=== PATIENT | female | born 1965 | race African-American/Black ===

== ENCOUNTER 2016-10-20 16:29 | Emergency (ER) | payer OTHER ==
[~2016-10-20] VITALS: Ht 157.5 cm; Wt 106.8 kg
[~2016-10-20 16:29] MED LIST: FLOMAX0.4 MG PO; PERCOCET 5/31 TABLET PO; ZOFRAN4 MG PO
[2016-10-20 17:08] LABS: HEMATOCRIT 39.9 % (36.0-46.0); MCH 28.4 PG (29.0-34.0); MCHC 32.8 G/DL (30.0-36.0); MCV 86.4 FL (83-99); MEAN PLAT.VOLUME 10.3 uM^3 (9.5-12.4); PLATELET COUNT 325 K/uL (156-360); RBC DIS.WIDTH-CV 15.1 % (11.8-14.6); RBC DIS.WIDTH-SD 47.2 % (39-53); RED BLOOD COUNT 4.62 M/uL (3.80-5.20); WHITE BLOOD COUNT 10.9 K/uL (4.1-10.2)
[2016-10-20 17:17] LABS: CHLORIDE 109 mEq/L (99-109); POTASSIUM 4.2 mEq/L (3.7-5.4); SODIUM 144 mEq/L (136-147)
[2016-10-20 17:18] LABS: GLUCOSE 88 mg/dL (70-99)
[2016-10-20 17:20] LABS: ANION GAP 11 MEQ/L (2-14)
[2016-10-20 17:22] LABS: GFR ESTIMATE (CALCULATED) > 59 mL/min/
[2016-10-20 17:23] LABS: UREA NITROGEN (BUN) 18 mg/dL (9-23)
[2016-10-20 18:31] LABS: ADD MIUA? YES; BILIRUBIN NEGATIVE; BLOOD SMALL; COLOR YELLOW ((YELLOW)); GLUCOSE (STRIP) NEGATIVE; KETONES NEGATIVE; LEUKOCYTES NEGATIVE; NITRITE NEGATIVE; PROTEIN (STRIP) 30; SPECIFIC GRAVITY 1.017 (1.000-1.030); UROBILINOGEN 0.2 MG/DL (0.2-1.0)
[2016-10-20 18:49] LABS: BACTERIA NONE SEEN /HPF; EPITHELIAL CELLS RARE /HPF; MUCUS TRACE /LPF; UCUL ADDED? NO; WHITE BLOOD CELLS 0-5 /HPF (0-5)
[2016-10-20] MEDS ORDERED: ZOFRAN ODT4 MG PO (20:37)
[2016-10-20] MEDS ORDERED: PERCOCET 5/31 TABLET PO (20:37)
[2016-10-20 20:59] VITALS: BP 182/82
== END 2016-10-20 21:01 | disposition home or self-care (01) ==
LOC: EME 16:29
DX: M54.5 Low back pain (principal); R31.9 Hematuria, unspecified; Z87.442 Personal history of urinary calculi; F17.200 Nicotine dependence, unspecified, uncomplicated
CPT/HCPCS: 74176; 80048; 81003; 85027; 99281; 99284; J1885; J3010

== ENCOUNTER 2016-10-27 02:55 | Emergency (ER) | payer OTHER ==
[~2016-10-27] VITALS: Ht 162.6 cm; Wt 108.0 kg
[~2016-10-27 02:55] MED LIST changes: +ZOFRAN ODT4 MG PO
[2016-10-27 04:22] LABS: ADD MIUA? YES; BILIRUBIN NEGATIVE; BLOOD SMALL; COLOR YELLOW ((YELLOW)); GLUCOSE (STRIP) NEGATIVE; KETONES NEGATIVE; LEUKOCYTES NEGATIVE; NITRITE NEGATIVE; PROTEIN (STRIP) 100; SPECIFIC GRAVITY 1.026 (1.000-1.030); UROBILINOGEN 0.2 MG/DL (0.2-1.0)
[2016-10-27 04:24] LABS: BACTERIA NONE SEEN /HPF; EPITHELIAL CELLS RARE /HPF; HYALINE CASTS 0-5 /LPF; MUCUS TRACE /LPF; UCUL ADDED? NO; WHITE BLOOD CELLS 0-5 /HPF (0-5)
[2016-10-27 04:35] LABS: CHLORIDE 112 mEq/L (99-109); POTASSIUM 4.3 mEq/L (3.7-5.4); SODIUM 144 mEq/L (136-147)
[2016-10-27 04:37] LABS: GLUCOSE 93 mg/dL (70-99)
[2016-10-27 04:38] LABS: ANION GAP 11 MEQ/L (2-14)
[2016-10-27 04:39] LABS: TOTAL BILIRUBIN 0.1 mg/dL (0.0-1.0)
[2016-10-27 04:40] LABS: ALKALINE PHOSPHATASE 114 IU/L (3-129)
[2016-10-27 04:41] LABS: GFR ESTIMATE (CALCULATED) > 59 mL/min/
[2016-10-27 04:42] LABS: UREA NITROGEN (BUN) 19 mg/dL (9-23)
[2016-10-27 04:44] LABS: LIPASE 7 U/L (1.0-51.0); TROP-I INTERPRETATION NEGATIVE; TROPONIN-I 0.01 ng/mL (0.0-0.30)
[2016-10-27] MEDS ORDERED: HYDROCHLOROTHIA25 MG PO (05:05)
[2016-10-27 05:31] VITALS: BP 163/97
== END 2016-10-27 05:35 | disposition home or self-care (01) ==
LOC: EME 02:55
PROVIDERS: Emergency Medicine
DX: R51 Headache (principal); I10 Essential (primary) hypertension; S16.1XXA Strain of muscle, fascia and tendon at neck level, initial encounter; Z87.442 Personal history of urinary calculi; F17.200 Nicotine dependence, unspecified, uncomplicated
CPT/HCPCS: 70450; 80053; 81003; 83690; 84484; 85027; 93005; 99281; 99284